=== PATIENT | male | born 1995 | race Asian ===

== ENCOUNTER 2019-03-22 05:37 | Inpatient (IN) ==
[2019-03-22] MEDS ORDERED: ONDANSETRON INJ 2 MG/ML 2 ML VIAL IV STA (06:00)
[2019-03-22] MEDS ORDERED: MoRPHine SULFATE 4 MG/ML 1 ML CARP\\VIAL IV PRN (06:00)
[2019-03-22] MEDS ORDERED: SODIUM CHLORIDE 0.9% 1000ML 1,000 ML IV SCH (06:00)
--- NOTE | 2019-03-22 06:07 | Emergency Department Note ---
History of Present Illness General Chief complaint: Abdominal Pain Stated complaint: BELLY PAIN,VOMITING Time Seen by Provider: 03/22/19 05:53 History of Present Illness Maximum Pain Intensity: 8 This is a 24-year-old male presenting to the emergency department for evaluation of lower abdominal pain that began over the past 2 to 3 hours. The patient describes it as a tightness across his very low abdomen that causes him pain and nausea. He did have one episode of vomiting prior to arrival. The patient has not had fever or chills. No new foods or recent travel. He has not had di arrhea or constipation. No history of abdominal surgery in the past. He rates his current pain an 8/10 and has not taken anything [id number] for his discomfort. Home Medications Home Medications Medication Instructions Recorded Confirmed Type No Known Home Medications 03/22/19 03/22/19 History Allergies Allergy/AdvReac Type Severity Reaction Status Date / Time lactose AdvReac Intermediate bloating Verified 03/22/19 10:19 dust mites Allergy Unknown Unknown Uncoded 03/22/19 10:21 Past Med/Surg History Medical History No chronic diseases present No significant past surgical history Surgical History S/P laparoscopic appendectomy (03/22/19) Laparoscopic appendectomy. Dr. 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 Beliefs That Will Affect Care: None Current Living Situation: Other Current Living Situation Comment: with roommates Other Information That Helps Us Care for You: No Feels Safe at Home: Yes Safety Concerns: Feels Safe At This Time Smoking Status: Current some day smoker Tobacco Type: cigarettes ; Cigarettes Per Day: 1 per week ; Do You Dip or Chew Tobacco: No ; Second Hand Exposure: No ; Tobacco Cessation Education Requested by Patient: No Hx Alcohol Use: Yes Hx Substance Use: No Review of Systems A total of 10 systems reviewed and were otherwise negative Physical Exam Vital Signs Vital Signs - 24 hr 03/22/19 05:41 03/22/19 06:46 03/22/19 07:17 Temperature 36.7 C Temperature Source Oral Sepsis Recent Fever Within 48 Hours No Sepsis Action Taken by Nursing No Action Required Pulse Rate 55 L Pulse Rate [Finger] 59 L 68 Pulse Rate from SpO2 Sensor Pulse Rhythm Regular Pulse Rhythm [Finger] Regular Pulse Strength Normal Pulse Strength [Finger] Normal Respiratory Rate 20 16 19 Respiratory Effort / Characteristics Non-Labored Spontaneous Non-Labored Spontaneous Non-Labored Spontaneous Respiratory Depth Normal Normal Normal Respiratory Pattern Regular Blood Pressure 113/50 L Blood Pressure [Right Arm] 134/77 111/59 L Blood Pressure Mean 71 Blood Pressure Mean [Right Arm] 96 76 Blood Pressure Position Sitting Blood Pressure Position [Right Arm] Pulse Oximetry 100 100 100 Oxygen Delivery Method Room Air Room Air Room Air 03/22/19 07:31 03/22/19 08:00 03/22/19 09:12 Temperature Temperature Source Sepsis Recent Fever Within 48 Hours Sepsis Action Taken by Nursing Pulse Rate 58 L 67 62 Pulse Rate [Finger] Pulse Rate from SpO2 Sensor 58 L 65 60 Pulse Rhythm Pulse Rhythm [Finger] Pulse Strength Pulse Strength [Finger] Respiratory Rate 19 23 21 Respiratory Effort / Characteristics Respiratory Depth Respiratory Pattern Blood Pressure 133/70 122/64 142/75 H Blood Pressure [Right Arm] Blood Pressure Mean 91 83 97 Blood Pressure Mean [Right Arm] Blood Pressure Position Blood Pressure Position [Right Arm] Pulse Oximetry 100 100 99 Oxygen Delivery Method 03/22/19 09:30 03/22/19 10:00 03/22/19 10:41 Temperature 36.3 C L Temperature Source Oral Sepsis Recent Fever Within 48 Hours Sepsis Action Taken by Nursing Pulse Rate 83 68 Pulse Rate [Finger] 60 Pulse Rate from SpO2 Sensor 83 Pulse Rhythm Pulse Rhythm [Finger] Regular Pulse Strength Pulse Strength [Finger] Normal Respiratory Rate 24 18 18 Respiratory Effort / Characteristics Non-Labored Spontaneous Respiratory Depth Normal Respiratory Pattern Regular Blood Pressure 134/82 127/62 Blood Pressure [Right Arm] 118/65 Blood Pressure Mean 99 83 Blood Pressure Mean [Right Arm] 82 Blood Pressure Position Blood Pressure Position [Right Arm] Sitting Pulse Oximetry 99 99 Oxygen Delivery Method Room Air VITALS: Vitals are noted on the nurse's note and reviewed by myself. Vital signs stable. GENERAL: Well-developed, well-nourished, male, who is in no acute distress and resting comfortably. Patient is cooperative with the examination. HEAD: Normocephalic atraumatic. HEART: Regular rate and rhythm without murmurs gallops or rubs. LUNGS: Clear to auscultation bilaterally without wheezes, rales or rhonchi. No retractions or accessory muscle use. ABDOMEN: Positive normal bowel sounds x 4. Soft with very low right and left l ower quadrant tenderness. No rebound or guarding. No CVA tenderness. MUSCULOSKELETAL: No muscle atrophy, erythema, or edema noted. Full range of motion in all extremities. NEURO: Patient was alert and oriented to person place and time. CN II through XII grossly intact. SKIN: The skin was without rashes, erythema, edema, or bruising. Capillary refill less than 2 seconds. Course Administered Medications Sodium Chloride (Nss 1000ml) 1,000 mls @ 50 mls/hr IV .Q20H KIMBERLEY Stop: 04/21/19 13:02 Last Admin: 03/22/19 13:39 Dose: 50 mls/hr Documented by: [id number] Cefoxitin Sodium 1,000 mg/ (Dextrose) 60 mls @ 100 mls/hr IV Q6H KIMBERLEY Stop: 04/01/19 15:59 Last Admin: 03/22/19 21:16 Dose: 100 mls/hr Documented by: [id number] Infusion: 03/22/19 16:45 Dose: 0 mls/hr Documented by: [id number] Admin: 03/22/19 15:45 Dose: 100 mls/hr Documented by: [id number] Discontinued Medications Bupivacaine HCl (Marcaine 0.5% Mpf) Confirm Administered Dose 30 ml .ROUTE .STK-MED ONE Stop: 03/22/19 10:41 Last Admin: 03/22/19 11:34 Dose: 13 ml Documented by: [id number] Sodium Chloride (Nss 1000ml) 1,000 mls @ 999 mls/hr IV .Q1H1M KIMBERLEY Stop: 03/22/19 07:00 Last Infusion: 03/22/19 07:52 Dose: 0 mls/hr Documented by: [id number] Admin: 03/22/19 06:10 Dose: 999 mls/hr Documented by: [id number] Cefoxitin Sodium (Mefoxin) 2,000 mg in 60 mls @ 100 mls/hr IV ONE ONE Stop: 03/22/19 11:05 Last Infusion: 03/22/19 13:10 Dose: 0 mls/hr Documented by: [id number] Admin: 03/22/19 10:47 Dose: 100 mls/hr Documented by: [id number] Acetaminophen (Ofirmev) 1,000 mg in 100 mls @ 400 mls/hr IV NOW ONE Stop: 03/22/19 11:57 Last Infusion: 03/22/19 13:10 Dose: 0 mls/hr Documented by: [id number] Admin: 03/22/19 12:07 Dose: 400 mls/hr Documented by: [id number] Ioversol (Optiray 320 125ml) 93 ml IV ONCE PRN PRN Reason: Interaction Checking Stop: 03/26/19 08:29 Last Admin: 03/22/19 08:31 Dose: 93 ml Documented by: [id number] Morphine Sulfate (Morphine Sulfate) 4 mg IV Q1H PRN PRN Reason: Pain Stop: 04/05/19 05:59 Last Admin: 03/22/19 06:10 Dose: 4 mg Documented by: [id number] Ondansetron HCl (Zofran) 4 mg IV NOW STA Stop: 03/22/19 06:01 Last Admin: 03/22/19 06:10 Dose: 4 mg Documented by: [id number] Medical Decision Making Differential Diagnosis Differential diagnosis: Etiologies such as biliary colic, cholecystitis, hepatitis, pancreatitis, cardi ac disease, pancreatitis, gastritis, peptic ulcer disease, appendicitis, cystitis, diverticulitis, mesenteric ischemia, inflammatory bowel disease, ileus, bowel obstruction, testicular/adnexal torsion, aortic pathology, shingles, as well as others were considered Laboratory Data Result diagrams: 03/22/19 06:01 03/22/19 06:01 Lab Results 03/22/19 03/22/19 03/22/19 Range/Units 06:01 06:01 08:43 WBC 12.90 H (4.8-10.8) K/uL RBC 4.85 (4.7-6.1) M/uL Hgb 14.6 (14.0-18.0) g/dL Hct 41.3 L (42-52) % MCV 85.2 (80-100) fL MCH 30.1 (25-34) pg MCHC 35.4 (32-36) g/dL RDW Std Deviation 36.9 (36.4-46.3) fL RDW Coeff of Annie 11.9 (11.5-14.5) % Plt Count 141 (130-400) K/uL MPV 11.0 H (7.4-10.4) fL Immature Gran % (Auto) 0.2 % Neut % (Auto) 84.9 % Lymph % (Auto) 8.2 % [place] % (Auto) 6.3 % Eos % (Auto) 0.2 % Baso % (Auto) 0.2 % Immature Gran # (Auto) 0.03 H (0.00-0.02) K/uL Neut # (Auto) 10.96 H (1.4-6.5) K/uL Lymph # (Auto) 1.06 L (1.2-3.4) K/uL [place] # (Auto) 0.81 H (0.11-0.59) K/uL Eos # (Auto) 0.02 (0-0.5) K/uL Baso # (Auto) 0.02 (0-0.2) K/uL Sodium 140 (136-145) mmol/L Potassium 3.4 L (3.5-5.1) mmol/L Chloride 105 (98-107) mmol/L Carbon Dioxide 29 (21-32) mmol/L Anion Gap 7.0 (3-11) BUN 17 (7-18) mg/dl Creatinine 1.04 (0.6-1.4) mg/dl Est Cr Clr Drug Dosing 111.0 ml/min Est GFR ( Amer) 115.1 Est GFR (Non-Af Amer) 99.3 BUN/Creatinine Ratio 16.7 (10-20) Glucose 127 H (70-99) mg/dl Calcium 8.6 (8.5-10.1) mg/dl Total Bilirubin 0.8 (0.2-1) mg/dl AST 10 L (15-37) U/L ALT 24 (12-78) U/L Alkaline Phosphatase 79 (45-117) U/L Total Protein 8.0 (6.4-8.2) gm/dl Albumin 4.5 (3.4-5.0) gm/dl Globulin 3.5 (2.5-4.0) gm/dl Albumin/Globulin Ratio 1.3 (0.9-2) Lipase 158 (73-393) U/L Urine Color Yellow Urine Appearance Turbid A (Clear) Urine pH >= 9.0 H (4.5-7.5) Ur Specific [place] 1.029 (1.000-1.030) Urine Protein Negative (Negative) Urine Glucose (UA) Trace H (Negative) Urine Ketones Negative (Negative) Urine Blood Negative (Negative) Urine Nitrite Negative (Negative) Urine Bilirubin Negative (Negative) Urine Urobilinogen Negative (Negative) Ur Leukocyte Esterase Negative (Negative) Urine WBC (Auto) 1-5 (0-5) /hpf Urine RBC (Auto) 0-4 (0-4) /hpf U Hyaline Cast (Auto) 1-5 (0-5) /lpf U Epithel Cells (Auto) >30 H (0-5) /lpf Urine Bacteria (Auto) Negative (Negative) Ur Renal Epithelial Cell Not Reportable Amorphous Sediment Present A (None Prsent) MDM Narrative Physical exam and history were performed. Nursing notes, EMR, and Medication List were personally reviewed. Patient appears to have very low abdominal pain bringing him to the ER tonight. IV access was established and labs were obtained. The patient was given IV morphine and IV Zofran. CT scan with IV and oral contrast was ordered. The patient remained in stable condition until the time of shift change. At this time the patient is feeling much better at standpoint but we are awaiting results of labs and CT scan. The case was discussed with my colleague, Marcie Jasso PA-C, who will assume care. Please see her dictation for further patient course, plan, and disposition. The chart was completed utilizing [employer] Voice Recognition Software. Grammatical errors, random word insertions, pronoun errors, and incomplete sentences are an occasional consequence of this system due to software limitations, ambient noise, and hardware issues. Any formal questions or concerns about the content, text, or information contained within the body of this dictation should be directly addressed to the provider for clarification. . Impression & Plan Acute appendicitis Discharge Plan Visit Data *Final* Discharge Date/Time: 03/22/19 10:20 Chief Complaint: Abdominal Pain Stated Complaint: BELLY PAIN,VOMITING ED Provider: Nicolasa Genao ED Midlevel Provider: Marcie Jasso Discharge Problem: Acute appendicitis Patient Disposition: Still a Patient Discharge Instructions Interventions: ED Discharge Assessment Last Done: 03/22/19 10:20
[2019-03-22 06:13] LABS: Basophils # (auto) 0.02 K/uL (0-0.2); Basophils % (auto) 0.2 %; Eosinophils # (auto) 0.02 K/uL (0-0.5); Eosinophils % (auto) 0.2 %; Hematocrit (blood only) 41.3 % (42-52); Hemoglobin 14.6 g/dL (14.0-18.0); Immature Granulocytes # (auto) 0.03 K/uL (0.00-0.02); Immature Granulocytes % (auto) 0.2 %; Lymphocytes # (auto) 1.06 K/uL (1.2-3.4); Lymphocytes % (auto) 8.2 %; Mean Corpuscular Hemoglobin 30.1 pg (25-34); Mean Corpuscular Hgb Conc 35.4 g/dL (32-36); Mean Corpuscular Volume 85.2 fL (80-100); Monocytes # (auto) 0.81 K/uL (0.11-0.59); Monocytes % (auto) 6.3 %; Neutrophils # (auto) 10.96 K/uL (1.4-6.5); Neutrophils % (auto) 84.9 %; Platelet Count 141 K/uL (130-400); RDW Coefficient of Variation 11.9 % (11.5-14.5); RDW Standard Deviation 36.9 fL (36.4-46.3); Red Blood Count 4.85 M/uL (4.7-6.1)
[2019-03-22 06:29] LABS: Albumin Level 4.5 gm/dl (3.4-5.0); BUN Creatinine Ratio 16.7 (10-20); Calcium 8.6 mg/dl (8.5-10.1); Est GFR (African American) 115.1; Est GFR (Non-African American) 99.3; Potassium 3.4 mmol/L (3.5-5.1)
[2019-03-22 06:32] LABS: Albumin Globulin Ratio 1.3 (0.9-2); Bilirubin,Total 0.8 mg/dl (0.2-1); Globulin 3.5 gm/dl (2.5-4.0)
--- NOTE | 2019-03-22 07:49 | Emergency Department Note ---
ED Visit Note Received the patient in sign out from Roberto Conroy PA-C at the end of his shift pending CT scan for likely acute appendicitis. Please see his dictation regarding complete history and physical examination. The patient developed lower abdominal pain at approximately 230 this morning. His last meal was at 7 PM last evening. He has not had anything to eat or drink with the exception of the oral contrast since approximately 4 AM. He did have nausea and one episode of vomiting prior to arrival. He was medicated while in the ED with Zofran, morphi ne, and IV fluids. He was feeling much better on my examination. PHYSICAL EXAM: VITALS: Vitals are noted on the nurse's note and reviewed by myself. Vital signs stable. The patient is afebrile, normotensive, not tachycardic. GENERAL: This is a 24-year-old male, in no acute distress, nondiaphoretic, well-developed well-nourished. SKIN: The skin was without rashes, erythema, edema, or bruising. There is no tenting of the skin. Capillary reflex less than 2 seconds. HEAD: Normocephalic atraumatic. NECK: Supple without nuchal rigidity. No lymphadenopathy. HEART: Regular rate and rhythm without murmurs gallops or rubs. LUNGS: Clear to auscultation bilaterally without wheezes, rales or rhonchi. No dullness to percussion. No retractions or accessory muscle use. ABDOMEN: Positive bowel sounds x 4. Normal tympanic percussion. Very mild right lower quadrant tenderness palpation. The abdomen was otherwise soft, nontender, without masses or organomegaly. Jin sign negative. No guarding or rebound tenderness. No CVA tenderness bilaterally. MUSCULOSKELETAL: No muscle atrophy, erythema, or edema noted. Full range of motion without joint tenderness in all extremities. No tenderness to palpation. Normal gait. Strength 5/5 throughout. NEURO: Patient was alert and oriented to person place and time. Normal sensation to light and sharp touch. No focal neurological deficits. RADIOLOGY: CT SCAN OF THE ABDOMEN AND PELVIS WITH IV CONTRAST CLINICAL HISTORY: Lower abdominal pain. COMPARISON STUDY: No priors. TECHNIQUE: Following the IV administration of 93 cc of Optiray 320, CT scan of the abdomen and pelvis is performed from the lung bases to the proximal femora. Images are reviewed in the axial, sagittal, and coronal planes. IV contrast was administered without complication. Oral contrast was utilized. A dose lowering technique was utilized adhering to the principles of ALARA. CT DOSE: 523.41 mGy.cm FINDINGS: Lung bases: The heart is normal in size and without pericardial effusion. The lung bases are clear. Liver: The contrast-enhanced liver is normal in size, contour, and attenuation. There is no intrahepatic biliary ductal dilatation. The hepatic veins and portal veins are patent. Gallbladder: Unremarkable. Spleen: The spleen is mildly enlarged measuring 15.4 cm in length. Pancreas: Unremarkable. Adrenal glands: Unremarkable. Kidneys: The contrast enhanced kidneys are normal in size and without hydronephrosis. The kidneys enhance symmetrically. Abdominal vasculature: The abdominal aorta is normal in course and caliber. Bowel: There is colonic fecal retention. No bowel obstruction is seen. Enteric contrast reaches the cecum. The appendix is distended and fluid-filled measuring up to 1.3 cm. The appendiceal wall is thickened and hyperemic and there is periappendiceal inflammation. Findings are consistent with acute appendicitis, and this is best seen on axial image #337a. No abscess is seen. Peritoneum: There is no intraperitoneal free air. Trace free fluid is noted in the pelvis. Lymphadenopathy: None. Pelvic viscera: The bladder, prostate, and seminal vesicles are normal as imaged. Skeletal structures: No lytic or blastic lesions are seen. IMPRESSION: 1. Findings are consistent with acute appendicitis. 2. There is no evidence of abscess or perforation. 3. Trace free fluid in the pelvis is nonspecific and likely on a reactive basis. 4. Mild splenomegaly. Electronically signed by: Ziyad Redding M.D. 03/22/2019 8:43 AM ED COURSE: The patient was seen and evaluated as above. I reviewed the CT scan and radiologist report. Symptoms and work-up are consistent with acute appendicitis. I discussed findings with the patient at bedside. I consulted with the general surgeon. I spoke with Dr. Mcnair. He did agree to see and evaluate the patient for surgery. The patient was seen by Dr. Mcnair. He was subsequently taken out of the department to the OR for appendectomy.
[2019-03-22] MEDS ORDERED: OPTIRAY 320 125ml IV PRN (08:30)
--- NOTE | 2019-03-22 08:44 | CT Scan Report ---
CT SCAN OF THE ABDOMEN AND PELVIS WITH IV CONTRAST CLINICAL HISTORY: Lower abdominal pain. COMPARISON STUDY: No priors. TECHNIQUE: Following the IV administration of 93 cc of Optiray 320, CT scan of the abdomen and pelvi s is performed from the lung bases to the proximal femora. Images are reviewed in the axial, sagittal , and coronal planes. IV contrast was administered without complication. Oral contrast was utilized. A dose lowering technique was utilized adhering to the principles of ALARA. CT DOSE: 523.41 mGy.cm FINDINGS: Lung bases: The heart is normal in size and without pericardial effusion. The lung bases are clear. Liver: The contrast-enhanced liver is normal in size, contour, and attenuation. There is no intrahepa tic biliary ductal dilatation. The hepatic veins and portal veins are patent. Gallbladder: Unremarkable. Spleen: The spleen is mildly enlarged measuring 15.4 cm in length. Pancreas: Unremarkable. Adrenal glands: Unremarkable. Kidneys: The contrast enhanced kidneys are normal in size and without hydronephrosis. The kidneys enh ance symmetrically. Abdominal vasculature: The abdominal aorta is normal in course and caliber. Bowel: There is colonic fecal retention. No bowel obstruction is seen. Enteric contrast reaches the c ecum. The appendix is distended and fluid-filled measuring up to 1.3 cm. The appendiceal wall is thi ckened and hyperemic and there is periappendiceal inflammation. Findings are consistent with acute ap pendicitis, and this is best seen on axial image #337a. No abscess is seen. Peritoneum: There is no intraperitoneal free air. Trace free fluid is noted in the pelvis. Lymphadenopathy: None. Pelvic viscera: The bladder, prostate, and seminal vesicles are normal as imaged. Skeletal structures: No lytic or blastic lesions are seen. IMPRESSION: 1. Findings are consistent with acute appendicitis. 2. There is no evidence of abscess or perforation. 3. Trace free fluid in the pelvis is nonspecific and likely on a reactive basis. 4. Mild splenomegaly. Electronically signed by: Ziyad Redding M.D. 03/22/2019 8:43 AM
[2019-03-22 08:54] LABS: Appearance Urine Turbid (Clear); Bacteria Urine Automated Negative (Negative); Bilirubin Urine Negative (Negative); Blood Urine Negative (Negative); Color Urine Yellow; Epithelial Cell Urine Auto >30 /lpf (0-5); Glucose Urine UA Trace (Negative); Ketones Urine Negative (Negative); Leukocyte Esterase Urine Negative (Negative); Nitrite Urine Negative (Negative); Protein Urine Negative (Negative); RBC Urine Automated 0-4 /hpf (0-4); Specific Gravity Urine 1.029 (1.000-1.030); Urobilinogen Urine Negative (Negative); pH Urine >= 9.0 (4.5-7.5)
[2019-03-22 09:21] LABS: Amorphous Sediment Urine Present (None Prsent)
--- NOTE | 2019-03-22 10:16 | History & Physical Report ---
Date of Service March 22, 2019 Assessment & Plan (1) Acute appendicitis: pt with acute appendicitis for laparoscopic appendectomy , possible open operation IV atbx preop History of Present Illness Primary Care Provider: [facility] [place] to ER with abd pain over past 12 hrs- some N/V CT shows appendicitis Home Medications Home Medications Medication Instructions Recorded Confirmed Type No Known Home Medications 03/22/19 03/22/19 History Past Med/Surg History Medical History No chronic diseases present No significant past surgical history Social History Preferred Language: Turkish Feels Safe at Home: Yes Smoking Status: Never smoker Review of Systems All systems reviewed & are unremarkable except as noted in HPI & below Physical Exam Physical Exam: abd soft, mild RLQ pain to palpation Constitutional: well developed and well nourished; no acute distress Respiratory: normal respiratory effort; no respiratory distress Cardiovascular: Rate/Rhythm: regular rate Gastrointestinal (Abdomen): Percussion/Palpation: abdomen soft Musculoskeletal: Head/Neck/Chest: head atraumatic Skin: no rashes, warm and dry Neurologic: awake Psychiatric: Orientation: alert Results & Data Vital Signs (Past 12 Hours) Vital Signs Temp Pulse Pulse Resp BP BP Pulse Ox 03/22/19 09:30 83 24 134/82 99 03/22/19 09:12 62 21 142/75 H 99 03/22/19 08:00 67 23 122/64 100 03/22/19 07:31 58 L 19 133/70 100 03/22/19 07:17 68 19 111/59 L 100 03/22/19 06:46 59 L 16 134/77 100 03/22/19 05:41 36.7 C 55 L 20 113/50 [address] scan
[2019-03-22] MEDS ORDERED: DEXAMETHASONE SOD INJ 4 MG/ML VIAL ONE (10:20)
[2019-03-22] MEDS ORDERED: LIDOCAINE HCL 2% 2 ML VIAL/AMP(20MG/ML) INFIL ONE (10:20)
[2019-03-22] MEDS ORDERED: PROPOFOL IV EMULSION 10 MG/ML 20 ML VIAL IV ONE (10:20)
[2019-03-22] MEDS ORDERED: ONDANSETRON INJ 2 MG/ML 2 ML VIAL ONE (10:20)
[2019-03-22] MEDS ORDERED: GLYCOPYRROLATE 0.2 MG/ML VIAL ONE (10:20)
[2019-03-22] MEDS ORDERED: NEOSTIGMINE METHYLSULFATE 5 MG/5 ML SYR ONE (10:20)
[2019-03-22] MEDS ORDERED: fentaNYL citrate 100 MCG/2 ML VIAL ONE (10:20)
[2019-03-22] MEDS ORDERED: ROCURONIUM BROMIDE 10 MG/ML 5 ML VIAL ONE (10:21)
[2019-03-22] MEDS ORDERED: MIDAZOLAM HCL 1 MG/ML 2ML VIAL ONE (10:21)
[2019-03-22] MEDS ORDERED: LARYING-O-JET KIT (LTA) ONE (10:21)
[2019-03-22] MEDS ORDERED: cefOXitin 2,000 MG/60 ML BAG IV ONE (10:30)
[2019-03-22] MEDS ORDERED: BUPIVACAINE 0.5 % 5 MG/1 ML MPF 30ML VIAL ONE (10:40)
--- NOTE | 2019-03-22 10:44 | Anesthesiology Consultation ---
Date of Service March 22, 2019 Assessment & Plan Chart Review Chart Review: Acceptable Risk for Surgery Consults Requested none History Surgery Operation Date: 03/22/19 07:30 Proposed Procedures p Laparoscopic Appendectomy - Jesse Mcnair MD, FACS Height/Weight Height: 6 ft 3 in Weight: 72.3 kg Allergies Allergy/AdvReac Type Severity Reaction Status Date / Time lactose AdvReac Intermediate bloating Verified 03/22/19 10:19 dust mites Allergy Unknown Unknown Uncoded 03/22/19 10:21 Medications Home Medications Medication Instructions Recorded Confirmed Last Taken No Known Home Medications 03/22/19 03/22/19 Unknown Active Medications Generic Name Dose Route Start Last Admin Trade Name Freq PRN Reason Stop Dose Admin Ioversol 93 ml 03/22/19 08:30 03/22/19 08:31 Optiray 320 125ml IV 03/26/19 08:29 93 ml ONCE PRN Administration Interaction Checking Morphine Sulfate 4 mg 03/22/19 06:00 03/22/19 06:10 Morphine Sulfate IV 04/05/19 05:59 4 mg Q1H PRN Administration Pain NPO Date Last Intake of Fluids: 03/22/19 Time Last Intake of Fluids: 04:00 Date Last Intake of Solids: 03/21/19 Time Last Intake of Solids: 23:55 Past Medical History Medical History No chronic diseases present No significant past surgical history Social History Smoking Status: Current some day smoker tobacco type: cigarettes Smoking cigarettes per day: 1 per week Do You Dip or Chew Tobacco: No Hx Alcohol Use: Yes alcohol intake frequency: holidays/special occasions only Hx Substance Use: No substance use type: does not use Physical Exam Vital Signs Last Vital Signs Temp 36.3 C L 03/22/19 10:41 Pulse 60 03/22/19 10:41 Resp 18 03/22/19 10:41 BP 118/65 03/22/19 10:41 Pulse Ox 99 03/22/19 10:41 Testing Laboratory Results 03/22/19 06:01 03/22/19 06:01 Urine Color Yellow 03/22/19 08:43 Urine Appearance Turbid (Clear) A 03/22/19 08:43 Urine pH >= 9.0 (4.5-7.5) H 03/22/19 08:43 Ur Specific [place] 1.029 (1.000-1.030) 03/22/19 08:43 Urine Protein Negative (Negative) 03/22/19 08:43 Urine Glucose (UA) Trace (Negative) H 03/22/19 08:43 Urine Ketones Negative (Negative) 03/22/19 08:43 Urine Nitrite Negative (Negative) 03/22/19 08:43 Ur Leukocyte Esterase Negative (Negative) 03/22/19 08:43 Urine WBC (Auto) 1-5 /hpf (0-5) 03/22/19 08:43 Urine RBC (Auto) 0-4 /hpf (0-4) 03/22/19 08:43 U Hyaline Cast (Auto) 1-5 /lpf (0-5) 03/22/19 08:43 U Epithel Cells (Auto) >30 /lpf (0-5) H 03/22/19 08:43 Urine Bacteria (Auto) Negative (Negative) 03/22/19 08:43
[2019-03-22] MEDS ORDERED: fentaNYL citrate 100 MCG/2 ML VIAL IV PRN (10:46)
[2019-03-22] MEDS ORDERED: ePHEDrine sulfate 50 MG/ML AMP IV PRN (10:46)
[2019-03-22] MEDS ORDERED: ONDANSETRON INJ 2 MG/ML 2 ML VIAL IV PRN ×2 (10:46→13:03)
[2019-03-22] MEDS ORDERED: METOCLOPRAMIDE HCL INJ 5 MG/ML 2 ML VIAL IV PRN (10:46)
[2019-03-22] MEDS ORDERED: HYDROmorphone INJ 2 MG/ML SYR/VIAL IV PRN (10:46)
[2019-03-22] MEDS ORDERED: PROMETHAZINE HCL 12.5 MG in SODIUM CHLORIDE 0.9% 50 ML IV PRN ×2 (10:46→13:03)
[2019-03-22] MEDS ORDERED: ATROPINE SULFATE 0.1 MG/ML 10ML SYR IV PRN (10:46)
[2019-03-22] MEDS ORDERED: KETOROLAC 30 MG/ML VIAL ONE (11:16)
--- NOTE | 2019-03-22 11:39 | Operative Report ---
Post Operative Report Pre & Post Diagnosis Operation Date: 03/22/19 07:30 Pre-Op Diagnosis: Acute appendicitis Post-Op Diagnosis: Acute appendicitis Procedure Operation Date: 03/22/19 07:30 Actual Procedures p Laparoscopic Appendectomy(Not Applicable) - Jesse Mcnair MD, FACS Surgeon Jesse Mcnair MD, FACS Bus Aide nurses Estimated Blood Loss 5 Findings Consistent with Post-Op Diagnosis Specimens appendix Description of Procedure see dictation I attest to the content of the Intraoperative Record and any orders documented therein. Any exceptions are noted below.
[2019-03-22] MEDS ORDERED: ACETAMINOPHEN 1,000 MG/100 ML VIAL IV ONE (11:43)
--- NOTE | 2019-03-22 12:05 | Operative Report ---
DATE OF OPERATION: 03/22/2019 NAME OF OPERATION: Laparoscopic appendectomy. PREOPERATIVE DIAGNOSIS: Acute appendicitis. POSTOPERATIVE DIAGNOSIS: Acute appendicitis. STAFF SURGEON: Jesse GOLDSTEIN MD ANESTHESIA: General. DESCRIPTION OF PROCEDURE: The patient was brought in the operating room and placed on the operating table in supine position. His abdomen was prepped and draped in the usual fashion. A 0.5% plain Marcaine was used to anesthetize all incisions. Incision was made above the umbilicus, carrying dissection down to the fascia, placing a Veress needle, producing pneumoperitoneum. An 11 mm port placed at this level. Then under visualization, a suprapubic 5 mm port placed and a left lower quadrant 12 mm port placed. The appendix was identified and retracted. The base of the appendix was transected using the Endo TITA stapler. Then the mesoappendix was transected using the Endo TITA stapler. After appropriate irrigation and hemostasis, the appendix was placed in an Endobag and then removed through the 12 mm site. All ports were then removed. The 11 mm and 12 mm sites were closed, reapproximating the fascia using 0 Vicryl suture. Skin reapproximated using subcuticular 4-0 Monocryl, Dermabond at the umbilicus and suprapubic areas, and Steri-Strips in the left lower quadrant. The patient transferred to recovery room in stable condition. I attest to the content of the Intraoperative Record and any orders documented therein. Any exception s are noted below.
--- NOTE | 2019-03-22 12:30 | Anesthesiology Progress Note ---
Date of Service March 22, 2019 Anesthesia Post Procedure Vital Signs Vital Signs: Temp Pulse Pulse Pulse Resp BP BP 03/22/19 12:25 55 L 16 122/66 03/22/19 12:15 58 L 19 119/56 L 03/22/19 12:05 58 L 22 114/59 L 03/22/19 11:59 37.0 C 59 L 20 116/60 03/22/19 10:41 36.3 C L 60 18 118/65 03/22/19 10:00 68 18 127/62 03/22/19 09:30 83 24 134/82 03/22/19 09:12 62 21 142/75 H 03/22/19 08:00 67 23 122/64 03/22/19 07:31 58 L 19 133/70 03/22/19 07:17 68 19 111/59 L 03/22/19 06:46 59 L 16 134/77 03/22/19 05:41 36.7 C 55 L 20 113/50 L Pulse Ox 03/22/19 12:25 99 03/22/19 12:15 99 03/22/19 12:05 99 03/22/19 11:59 98 03/22/19 10:41 99 03/22/19 10:00 03/22/19 09:30 99 03/22/19 09:12 99 03/22/19 08:00 100 03/22/19 07:31 100 03/22/19 07:17 100 03/22/19 06:46 100 03/22/19 05:41 100 Pain Intensity Abdomen: Pain Intensity: 0 Transfer of Care Handoff Completed per policy Notes Mental Status: alert / awake / arousable and participated in evaluation Patient Amnestic to Procedure: Yes Nausea / Vomiting: adequately controlled Pain: adequately controlled Airway Patency, RR, SpO2: stable & adequate BP & HR: stable & adequate Hydration State: stable & adequate Anesthetic Complications: no major complications apparent
[2019-03-22] MEDS ORDERED: IBUPROFEN 600 MG TAB PO PRN (13:03)
[2019-03-22] MEDS ORDERED: HYDROmorphone INJ 0.5 MG/0.5 ML SYR IV PRN (13:03)
[2019-03-22] MEDS ORDERED: HYDROmorphone INJ 1 MG/ML SYRINGE IV PRN (13:03)
[2019-03-22] MEDS ORDERED: HYDROCODONE/ACETAMOPHEN 5/325MG TAB PO PRN ×2 (13:03)
[2019-03-22] MEDS ORDERED: PROMETHAZINE HCL 25 MG in SODIUM CHLORIDE 0.9% 50 ML IV PRN (13:03)
[2019-03-22] MEDS: SODIUM CHLORIDE 0.9% 1000ML 1,000 ML IV SCH (13:39)
--- NOTE | 2019-03-23 06:55 | Surgery Progress Note ---
Date of Service March 23, 2019 Assessment & Plan (1) Acute appendicitis: s/p lap appendectomy- some pain- cont supportive care today Cont IV atbx, pain meds probable d/c home tomorrow Results & Data Vital Signs (Past 12 Hours) Vital Signs Temp Pulse Pulse Resp BP BP Pulse Ox 03/23/19 02:36 36.9 C 79 18 110/69 97 03/22/19 23:04 36.8 C 63 16 110/57 L 97 03/22/19 19:21 37.1 C 64 16 120/73 97 PG Care Time/CCT Total # of Minutes Spent Total Time Spent with Patient: Total time spent is greater than 50% in coordination of care (as documented) at patient's floor/unit and/or counseling patient:
--- NOTE | 2019-03-23 07:30 | Anesthesiology Progress Note ---
Date of Service March 23, 2019 Anesthesia Post Procedure Vital Signs Vital Signs: Temp Pulse Pulse Pulse Pulse Resp BP 03/23/19 02:36 36.9 C 79 18 03/22/19 23:04 36.8 C 63 16 03/22/19 19:21 37.1 C 64 16 03/22/19 15:48 36.4 C L 65 16 03/22/19 14:55 36.7 C 61 18 03/22/19 13:52 36.5 C 57 L 16 03/22/19 13:20 36.5 C 59 L 18 03/22/19 12:50 36.5 C 58 L 16 03/22/19 12:40 58 L 18 03/22/19 12:35 37.1 C 66 20 03/22/19 12:25 55 L 16 03/22/19 12:15 58 L 19 03/22/19 12:05 58 L 22 03/22/19 11:59 37.0 C 59 L 20 03/22/19 10:41 36.3 C L 60 18 03/22/19 10:00 68 18 127/62 03/22/19 09:30 83 24 134/82 03/22/19 09:12 62 21 142/75 H 03/22/19 08:00 67 23 122/64 03/22/19 07:31 58 L 19 133/70 BP BP Pulse Ox 03/23/19 02:36 110/69 97 03/22/19 23:04 110/57 L 97 03/22/19 19:21 120/73 97 03/22/19 15:48 116/70 96 03/22/19 14:55 109/63 98 03/22/19 13:52 117/74 99 03/22/19 13:20 124/73 96 03/22/19 12:50 120/54 L 98 03/22/19 12:40 128/74 96 03/22/19 12:35 122/78 97 03/22/19 12:25 122/66 99 03/22/19 12:15 119/56 L 99 03/22/19 12:05 114/59 L 99 03/22/19 11:59 116/60 98 03/22/19 10:41 118/65 99 03/22/19 10:00 03/22/19 09:30 99 03/22/19 09:12 99 03/22/19 08:00 100 03/22/19 07:31 100 Pain Intensity Abdomen: Pain Intensity: 4 Notes Mental Status: alert / awake / arousable and participated in evaluation Patient Amnestic to Procedure: Yes Nausea / Vomiting: adequately controlled Pain: adequately controlled Airway Patency, RR, SpO2: stable & adequate BP & HR: stable & adequate Hydration State: stable & adequate Anesthetic Complications: Pt Satisfied with anesthetic care
[2019-03-23] MEDS: SODIUM CHLORIDE 0.9% 1000ML 1,000 ML IV SCH (09:12)
--- NOTE | 2019-03-24 08:22 | Surgery Progress Note ---
Date of Service March 24, 2019 Assessment & Plan (1) Acute appendicitis: doing well discharge today Present on Admission?: Yes Subjective Doing well taking po without problem pain controlled Review of Systems Constitutional: no fever and no chills Respiratory: no dyspnea Cardiovascular: no chest pain Gastrointestinal: + abdominal pain (minimal); no nausea and no vomiting Musculoskeletal: no back pain Integumentary: no rash Physical Exam Constitutional: well developed and well nourished Respiratory: normal respiratory effort, lungs clear to auscultation Cardiovascular: RRR, no murmur, no edema Gastrointestinal (Abdomen): Inspection/Auscultation: normal bowel sounds; abdomen not distended Percussion/Palpation: + abdomen tender some hematoma around umbilical hernia Musculoskeletal: Head/Neck/Chest: normocephalic and head atraumatic Skin: no rashes, warm and dry Results & Data Vital Signs (Past 12 Hours) Vital Signs Temp Pulse Resp BP BP Pulse Ox 03/24/19 07:58 36.4 C L 54 L 16 113/71 100 03/24/19 03:26 36.6 C 64 16 108/63 98 03/23/19 23:41 36.7 C 64 16 118/63 98
--- NOTE | 2019-03-26 14:29 | Discharge Summary ---
PRINCIPAL DIAGNOSIS: Acute appendicitis. PROCEDURE: The patient underwent laparoscopic appendectomy. HISTORY OF PRESENT ILLNESS: The patient is a 24-year-old male presenting to the Emergency Room with acute appendicitis. HOSPITAL COURSE: He was taken to the operating room on 03/22/2019 where he underwent laparoscopic appendectomy, which he tolerated very well. He progressed over the next 2 days and was felt stable for discharge on 03/24/2019, to be followed in the surgical clinic within 1-2 weeks.
== END 2019-03-24 11:54 | disposition home or self-care (01) | DRG 343 ==
LOC: ED 05:37 → ASU 10:20 → 3N 11:39